=== PATIENT | male | born 1965 | race Two or more races ===

== ENCOUNTER 2024-10-09 08:46 | Inpatient (IN) | payer OTHER ==
[~2024-10-09] VITALS: Ht 185.4 cm; Wt 88.5 kg
[2024-10-09] VITALS (10 sets, daily range): BP systolic 95–137; BP diastolic 51–92; O2SAT 97–100
[2024-10-09] MEDS ORDERED: ATORVASTATIN CA20 MG PO (09:13)
[2024-10-09] MEDS ORDERED: PROPRANOLOL HCL60 M1 PO (09:13)
[2024-10-09] MEDS ORDERED: LOSARTAN POTASS50 MG PO (09:14)
[2024-10-09] MEDS ORDERED: VAZALORE81 MG PO (09:14)
[2024-10-09] MEDS ORDERED: ENOXAPARIN SODIUM 80 MG/0.8 ML SYRINGE SUBCUTANEO SCH ×2 (09:17→10:35)
--- NOTE | 2024-10-09 09:24 | NUR ---
SE PRESENTA PACIENTE ALERTA Y CONCIENTE X3 ACOMPANADO DE MONROY ESPOSA. EL PACIENTE AL MOMENTO INDICA SENTIR PALPITACIONES DESDE EL KHOA DE ADRIANNE. SE PROCEDE A LENA S/V, REALIZAR UN EKG ORDENADO Y EVALUADO POR EL DR. VELOZ. SE UBICA A PACIENTE EN ICU.
[2024-10-09] MEDS ORDERED: DILTIAZEM HCL 125MG/25ML VIAL IV SCH (09:30)
[2024-10-09] MEDS ORDERED: ENOXAPARIN SODIUM 80 MG/0.8 ML SYRINGE SUBCUTANEO ONE ×2 (09:41→15:57)
--- NOTE | 2024-10-09 09:52 | NUR ---
SE RECIBE A PACIENTE ALERTA Y ORIENTADA X3 EN ARE DE CRITICO. SE COLOCA EN CAMA A NIVEL DE PISO JUNTO CON BARRANDAS ELEVADAS Y SE CONECTA A MONITOR CARDIACO Y OXIMETRIA CONTINUA. SE ORIENTA A PACIENTE SOBRE PROCESO DE ROBSON DE MUESTRAS, CANALIZACION Y ADMINISTRACION DE MEDICAMENTOS, REFIERE ENTENDER. SE EJECUTAN ORDENES BAJO MEDIDAS ASEPTICAS. PENDIENTE A RX.
[2024-10-09 10:08] LABS: HEMATOCRIT 46.7 % (39.0-48.0); HEMOGLOBIN 16.2 g/dL (13-16.00); MEAN CELL VOLUME 91.6 fL (80.0-100.00); MEAN CORPUSCULAR HEMOGLOBIN 31.8 pg (27.00-32.0); MEAN CORPUSCULAR HGB CONC 34.7 g/dl (32.0-36.0); PLATELET COUNT 199 K/uL (150-450); RED CELL DISTRIBUTION WIDTH 13.7 % (11.5-14.5)
[2024-10-09] MEDS ORDERED: SODIUM CHLORIDE 0.45 % 1,000 ML IV SCH (10:30)
[2024-10-09] MEDS ORDERED: PROPRANOLOL HCL 60 MG CAPSULE.SA PO SCH (10:32)
[2024-10-09 10:33] LABS: INR 1.03; PARTIAL THROMBOPLASTIN TIME 24.3 SECONDS (22.0-34.0); PROTHROMBIN TIME 11.2 SECONDS (9.0-11.5)
[2024-10-09] MEDS ORDERED: CANDESARTAN CILEXETIL 16 MG TABLET PO SCH (10:34)
[2024-10-09] MEDS ORDERED: AMIODARONE HCL 50 MG/ML AMPUL IV SCH (10:45)
[2024-10-09 12:10] LABS: CHOL HDL RATIO 2.4 (0-5.0)
[2024-10-09 12:11] LABS: BILIRUBIN TOTAL 1.05 mg/dL (0.3-1.2); CALCIUM 9.3 mg/dL (8.5-10.1); CREATININE SERUM 1.25 mg/dL (0.70-1.30); GFR 59.75; GLOBULINA 3.2 G/DL (2.4-3.5); POTASSIUM 4.78 mEq/L (3.5-5.1); TOTAL PROTEIN 7.2 gm/dL (6.4-8.2)
[2024-10-09] MEDS ORDERED: AMIODARONE HCL 900 MG in DEXTROSE 5 % IN WATER 500 ML IV SCH ×2 (12:15→20:30)
[2024-10-09 17:27] LABS: DIGOXIN 0.07 ng/ml (0.8-2.0)
[2024-10-09 18:04] LABS: MAGNESIUM 1.7 mg/dL (1.8-2.4); PHOSPHOROUS 3.2 mg/dL (2.5-4.9)
[2024-10-09] MEDS ORDERED: PANTOPRAZOLE SODIUM 40 MG TABLET.DR PO SCH (21:00)
[2024-10-09] MEDS ORDERED: METOPROLOL TARTRATE 25 MG TABLET PO SCH (23:05)
[2024-10-10] VITALS (8 sets, daily range): BP systolic 110–137; BP diastolic 84–89; O2SAT 98–100
[2024-10-10 06:44] LABS: HEMATOCRIT 43.4 % (39.0-48.0); HEMOGLOBIN 14.9 g/dL (13-16.00); MEAN CELL VOLUME 92.9 fL (80.0-100.00); MEAN CORPUSCULAR HEMOGLOBIN 31.8 pg (27.00-32.0); MEAN CORPUSCULAR HGB CONC 34.2 g/dl (32.0-36.0); PLATELET COUNT 169 K/uL (150-450); RED BLOOD COUNT 4.67 M/uL (4.00-6.00); RED CELL DISTRIBUTION WIDTH 13.4 % (11.5-14.5)
[2024-10-10 07:03] LABS: ERYTHROCYTE SEDIMENTATION RATE 1 mm/hr
[2024-10-10 07:07] LABS: INR 1.08; PARTIAL THROMBOPLASTIN TIME 28.2 SECONDS (22.0-34.0); PROTHROMBIN TIME 11.7 SECONDS (9.0-11.5)
[2024-10-10 08:10] LABS: ALBUMIN 3.4 gm/dL (3.4-5.0); BILIRUBIN TOTAL 1.06 mg/dL (0.3-1.2); CALCIUM 8.7 mg/dL (8.5-10.1); CREATININE SERUM 1.04 mg/dL (0.70-1.30); GFR 73.87; GLOBULINA 2.6 G/DL (2.4-3.5); PHOSPHOROUS 3.6 mg/dL (2.5-4.9); POTASSIUM 4.31 mEq/L (3.5-5.1); T4 FREE 1.06 NG/ML (0.76-1.46); TSH 1.35 uIU/mL (0.358-3.74)
[2024-10-10] MEDS ORDERED: ATORVASTATIN CALCIUM 40 MG TABLET PO SCH (09:00)
[2024-10-10 13:53] LABS: URINE APPEARANCE Turbid; URINE BILIRRUBIN Negative (NEGATIVE); URINE BLOOD Negative; URINE COLOR Yellow; URINE GLUCOSE Negative (NEGATIVE); URINE KETONE Negative (NEGATIVE); URINE LEUKOCYTE Negative; URINE NITRATE Negative; URINE PROTEIN Negative (NEGATIVE); URINE UROBILINOGEN 0.2 E.U./dl
[2024-10-10 13:57] LABS: URINE EPITHELIAL CELLS 4.2 uL (0.0-38.8); URINE RBC 3.2 uL (0.0-20.8); URINE WBC 8.8 uL (0.0-23.2)
[2024-10-10 14:01] LABS: URINE CAST 0.14 uL (0.0-1.40)
[2024-10-10] MEDS ORDERED: METOPROLOL TARTRATE 25 MG TABLET PO SCH (17:00)
[2024-10-11 00:22] VITALS: BP 104/67
[2024-10-11 00:42] VITALS: O2SAT 98
[2024-10-11 05:29] VITALS: O2SAT 96
[2024-10-11 06:53] LABS: PROSTATIC SPECIFIC ANTIGEN 1.29 NG/ML (0.010-4.00)
[2024-10-11 08:00] VITALS: BP 125/87; O2SAT 98
[2024-10-11 09:46] VITALS: O2SAT 100
== END 2024-10-11 10:58 | disposition designated cancer center or children's hospital (05) | DRG 310 ==
LOC: ER 08:46 → ICU-2 12:21 → ICU 12:21 → MEDJ 10-10 20:46
PROVIDERS: Emergency Medicine; Internal Medicine; ADMIT Internal Medicine; ATTEND Internal Medicine
PROC: B246ZZZ Ultrasonography of Right and Left Heart (ICD-10-PCS; principal; 2024-10-09)
PROC: 4A12X4Z Monitoring of Cardiac Electrical Activity, External Approach (ICD-10-PCS; 2024-10-10)
DX: I48.20 Chronic atrial fibrillation, unspecified (principal); I10 Essential (primary) hypertension